=== PATIENT | male | born 1975 | race Caucasian/White ===

== ENCOUNTER 2023-07-30 20:50 | Emergency (ER) | payer SELFPAY ==
[~2023-07-30] VITALS: Ht 180.3 cm; Wt 90.7 kg
[2023-07-30 20:57] VITALS: BP 136/83; PULSE 111; RESP 16; TEMP 98; O2SAT 98
[2023-07-30 21:29] VITALS: BP 134/85; PULSE 92; RESP 16; TEMP 98; O2SAT 98
== END 2023-07-30 21:29 ==
LOC: MED 20:50
DX: V49.88XA Car occupant (driver) (passenger) injured in other specified transport accidents, initial encounter; Y93.89 Activity, other specified; Y92.89 Other specified places as the place of occurrence of the external cause; Y99.8 Other external cause status
CPT/HCPCS: 99283